=== PATIENT | male | born 1935 | race Caucasian/White ===

== ENCOUNTER 2016-08-09 14:27 | Outpatient (CLI) | payer MEDICARE, OTHER | END 2016-08-09 14:28 | disposition critical access hospital (66) | LOC: EMS 14:27 | PROVIDERS: ATTEND Surgery | DX: R55 Syncope and collapse (principal) | CPT/HCPCS: A0425; A0427 ==

== ENCOUNTER 2016-08-09 14:48 | Observation (INO) | payer MEDICARE, OTHER ==
--- NOTE | 2016-08-09 15:13 | ED Physician Documentation ---
PD HPI CHEST PAIN - Stated complaint Stated Complaint: SYNCOPE - Chief complaint Chief Complaint: Cardiac - History obtained from History obtained from: Patient - History of Present Illness Timing - onset: Other (81-year-old with history of [place] 5 months ago, initially had a EF of 15% he rebounded to 55%. Today he was at a birthday democrat, going down the stairs, had a mechanical slip and fall and braced himself with the right arm and injured his right arm. On water softener servicer and installer arrival they found him to be bradycardic into the 30s and lightheaded, it was reported that he had syncope but he says he remembers everything. He denies any chest pain or trouble breathing.) Review of Systems Ten Systems: 10 systems reviewed and negative Constitutional: denies: Fever, Chills Nose: denies: Rhinorrhea / runny nose, Congestion Cardiac: denies: Chest pain / pressure, Palpitations, Pedal edema, Calf pain Respiratory: denies: Dyspnea, Cough, Wheezing GI: denies: Abdominal Pain PD PAST MEDICAL HISTORY - Past Medical History Cardiovascular: Hypertension Respiratory: None Neuro: None Endocrine/Autoimmune: None HEENT: Other Psych: None Musculoskeletal: None, Osteoarthritis - Past Surgical History Past Surgical History: Yes General: Colonoscopy HEENT: Cataracts - Present Medications Home Medications: Ambulatory Orders Medication Instructions Recorded Confirmed Atorvastatin [Lipitor] 10 mg ORAL QPM 08/09/16 08/09/16 Carvedilol 18.75 mg ORAL BID 08/09/16 08/09/16 Furosemide 40 mg ORAL DAILY 08/09/16 08/09/16 Losartan [Cozaar] 25 mg ORAL QPM 08/09/16 08/09/16 Multivitamin [Multivitamins] 1 tab ORAL DAILY 08/09/16 08/09/16 Spironolactone 25 mg ORAL DAILY 08/09/16 08/09/16 - Allergies Allergies/Adverse Reactions: Allergies Allergy/AdvReac Type Severity Reaction Status Date / Time aspirin Allergy Intermediate Rash Verified 08/09/16 14:58 - Social History Does the pt smoke?: No Smoking Status: Former smoker Does the pt drink ETOH?: Yes Does the pt have substance abuse?: No - Immunizations Immunizations are current?: Yes PD ED PE NORMAL - Vitals Vital signs reviewed: Yes - General General: Alert and oriented X 3, No acute distress - HEENT HEENT: PERRL, EOMI - Neck Neck: Supple, no meningeal sign, No bony TTP - Cardiac Cardiac: RRR, No murmur - Respiratory Respiratory: No respiratory distress, Clear bilaterally - Abdomen Abdomen: Soft, Non tender - Back Back: No CVA TTP, No spinal TTP - Derm Derm: Normal color, Warm and dry - Extremities Extremities: Other (Mildly tender mid right humerus and pain with lifting off the bed, no deformity or neurovascular compromise.) - Neuro Neuro: Alert and oriented X 3, Normal speech - Psych Psych: Normal mood, Normal affect Results - Vitals Vitals: Vital Signs - 24 hr 08/09/16 08/09/16 14:50 15:34 Temperature 36.4 C L Heart Rate 57 L 50 L Respiratory 18 14 Rate Blood Pressure 108/87 H 133/48 H O2 Saturation 100 100 Oxygen O2 Source Room air - EKG (time done) 1451 Rate: Rate (enter#) (58) Rhythm: NSR [place]: Normal Intervals: Normal MD Ischemia: Non specific changes Computer interpretation: Agree with computer - Labs Labs: Laboratory Tests 08/09/16 08/09/16 08/09/16 14:50 14:50 14:50 WBC 3.3 L RBC 3.04 L Hgb 10.1 L Hct 28.7 L MCV 94.6 H MCH 33.4 H MCHC 35.3 RDW 12.7 Plt Count 90 L MPV 10.2 Neut # 1.5 Lymph # 1.2 L Coffee # 0.4 Eos # 0.1 Baso # 0.0 Absolute Nucleated RBC 0.00 Nucleated RBCs 0.0 Sodium 131 L Potassium 5.4 H Chloride 104 Carbon Dioxide 21 Anion Gap 6.0 BUN 34 H Creatinine 1.6 H Estimated GFR (MDRD) 42 L Glucose 130 H Calcium 8.0 L Total Bilirubin 0.4 AST 17 ALT 19 Alkaline Phosphatase 49 Troponin I < 0.04 B-Natriuretic Peptide Total Protein 6.0 L Albumin 3.9 Globulin 2.1 Albumin/Globulin Ratio 1.9 Lipase 59 H 08/09/16 14:50 WBC RBC Hgb Hct MCV MCH MCHC RDW Plt Count MPV Neut # Lymph # Coffee # Eos # Baso # Absolute Nucleated RBC Nucleated RBCs Sodium Potassium Chloride Carbon Dioxide Anion Gap BUN Creatinine Estimated GFR (MDRD) Glucose Calcium Total Bilirubin AST ALT Alkaline Phosphatase Troponin I B-Natriuretic Peptide 72 Total Protein Albumin Globulin Albumin/Globulin Ratio Lipase - Rads (name of study) right humerus Radiology: EMP read contemporaneously (No fracture) PD MEDICAL DECISION MAKING - ED course ED course: 81-year-old gentleman with history of [place] and what sounds like ischemic cardiomyopathy presents after a mechanical fall, potentially followed by syncope mediated by bradycardia versus vagal episode from the injury. Hard to tell at this point. His heart rate here is normal. He does have moderate anemia which seems to be new compared with old labs and mildly but slowly worsening renal insufficiency. Call to Dr. Rosa for observation at 356 p.m. Departure - Departure Disposition: ED Place in Observation Clinical Impression: Ischemic cardiomyopathy, Renal insufficiency, Bradycardia, Pancytopenia Syncope Qualifiers: Syncope type: unspecified Qualified Code(s): R55 - Syncope and collapse Contusion of right arm Qualifiers: Encounter type: initial encounter Qualified Code(s): S40.021A - Contusion of right upper arm, initial encounter Condition: Stable Discharge Date/Time: 08/09/16 16:36
[2016-08-09 15:37] LABS: BASOPHILS % (AUTO) 0.8 %; EOSINOPHILS # (AUTO) 0.1 10^3/uL (0.0-0.7); EOSINOPHILS % (AUTO) 2.2 %; HCT - HEMATOCRIT 28.7 % (42.0-52.0); HGB - HEMOGLOBIN 10.1 g/dL (14.0-18.0); LYMPHOCYTES # (AUTO) 1.2 10^3/uL (1.5-3.5); LYMPHOCYTES % (AUTO) 36.9 %; MEAN CORPUSCULAR HEMOGLOBIN 33.4 pg (27.0-31.0); MEAN CORPUSCULAR HGB CONC 35.3 g/dL (32.0-36.0); MEAN CORPUSCULAR VOLUME 94.6 fL (80.0-94.0); MEAN PLATELET VOLUME 10.2 fL (7.4-11.4); MONOCYTES # (AUTO) 0.4 10^3/uL (0.0-1.0); MONOCYTES % (AUTO) 13.5 %; NEUTROPHILS # (AUTO) 1.5 10^3/uL (1.5-6.6); NEUTROPHILS % (AUTO) 46.6 %; RED BLOOD COUNT 3.04 10^6/uL (4.70-6.10); RED CELL DISTRIBUTION WIDTH 12.7 % (12.0-15.0); UNCORRECTED WHITE BLOOD COUNT 3.3 x10^3/uL; WHITE BLOOD COUNT 3.3 x10^3/uL (4.8-10.8)
--- NOTE | 2016-08-09 15:44 | XRAY Preliminary Report ---
Exam: XR Humerus RT IMPRESSION: No fracture. [facility] SITE ID: [id number]
[2016-08-09 15:46] LABS: ALBUMIN/GLOBULIN RATIO 1.9 (1.0-2.2); BILIRUBIN,TOTAL 0.4 mg/dL (0.2-1.0); CREATININE 1.6 mg/dL (0.6-1.2); POTASSIUM 5.4 mmol/L (3.5-5.0)
--- NOTE | 2016-08-09 15:46 | XRAY Report ---
EXAM: RIGHT HUMERUS RADIOGRAPHY EXAM DATE: 08/09/2016 03:33 PM. CLINICAL HISTORY: Fall with right arm injury. COMPARISON: None. TECHNIQUE: 2 views. FINDINGS: Bones: No fracture or bony destruction. Joints: Alignment and joint space appears satisfactory. Soft Tissues: Normal. No soft tissue swelling. IMPRESSION: No fracture. [facility] Referring Provider Line: [phone] SITE ID: [id number]
[2016-08-09] MEDS ORDERED: SODIUM CHLORIDE FLUSH 0.9% 10 ML SYRINGE IVP PRN (16:08)
[2016-08-09] MEDS: SODIUM CHLORIDE FLUSH 0.9% 10 ML SYRINGE IVP SCH (19:39)
[2016-08-09] MEDS: SODIUM CHLORIDE 0.9% 1,000 ML IV SCH (19:39)
--- NOTE | 2016-08-09 19:48 | Ultrasound Preliminary Report ---
Exam: US Carotid Doppler Complete IMPRESSION: 1. No evidence for hemodynamically significant focal stenosis. 2. Antegrade flow within the vertebral arteries bilaterally. Validated velocity measurements with angiographic measurements and velocity criteria are extrapolated from diameter data as defined by the Society of Radiologists in Ultrasound Consensus Conference Radi ology 2003; 229;340-346. [facility] SITE ID: [id number]
--- NOTE | 2016-08-09 20:17 | Ultrasound Report ---
EXAM: CAROTID DOPPLER ULTRASOUND EXAM DATE: 08/09/2016 07:24 PM. CLINICAL HISTORY: Syncope. COMPARISON: None. TECHNIQUE: Real-time sonographic vascular imaging was performed by the swatch folder through the caroti d arterial system with a linear transducer utilizing color-flow, Doppler flow and spectral analysis. Multiple transportation services representative static images were saved for review. FINDINGS: RIGHT: RCCA Prox: PSV 112 cm/sec. RCCA Dist: PSV 74 cm/sec, EDV 11 cm/sec. RECA: PSV 139 cm/sec. R Bulb: PSV 39 cm/sec, EDV 2 cm/sec, ICA/CCA ratio 0.52. WILLIAM Prox: PSV 44 cm/sec, EDV 7 cm/sec, ICA/CCA ratio 0.59. WILLIAM Mid: PSV 82 cm/sec, EDV 22 cm/sec, ICA/CCA ratio 1.10. WILLIAM Dist: PSV 69 cm/sec, EDV 19 cm/sec, ICA/CCA ratio 0.93. RVA: PSV 47 cm/sec. LEFT: LCCA Prox: PSV 77 cm/sec. LCCA Dist: PSV 99 cm/sec, EDV 14 cm/sec. LECA: PSV 109 cm/sec. L Bulb: PSV 52 cm/sec, EDV 6 cm/sec, ICA/CCA ratio 0.52. LICA Prox: PSV 80 cm/sec, EDV 23 cm/sec, ICA/CCA ratio 0.80. LICA Mid: PSV 62 cm/sec, EDV 13 cm/sec, ICA/CCA ratio 0.62. LICA Dist: PSV 74 cm/sec, EDV 15 cm/sec, ICA/CCA ratio 0.74. LVA: PSV 41 cm/sec. Other: Atherosclerotic calcifications in the bilateral carotid bulbs, left greater than right. IMPRESSION: 1. No evidence for hemodynamically significant focal stenosis. 2. Antegrade flow within the vertebral arteries bilaterally. Validated velocity measurements with angiographic measurements and velocity criteria are extrapolated from diameter data as defined by the Society of Radiologists in Ultrasound Consensus Conference Radi ology 2003; 229;340-346. [facility] Referring Provider Line: [phone] SITE ID: [id number]
--- NOTE | 2016-08-09 22:52 | HISTORY & PHYSICAL EXAMINATION ---
DATE OF ADMISSION: 08/09/2016 PRIMARY CARE PHYSICIAN: Feng Davila MD CHIEF COMPLAINT: Fall. IDENTIFYING INFORMATION: The patient is the primary source of history. His is also with him and presents essential historical information as well. The patient's history is supplemented by the hand-off from Dr. Valdivia, the emergency department physician, as well as personal review of past medical records and the data collected during this visit. All were used in addition to his examination in evaluation of this person and preparation of this document. HISTORY OF PRESENT ILLNESS: The patient is an 81-year-old gentleman, who has history of [place] 5 months ago and CHF, who today was at a birthday democrat at the [employer] for his great granddaughter, and he missed the first step going down and yelled out, and his was ahead of him and had the wherewithal to be holding onto the railing and brace herself so he did not go farther. The patient was noted to be very ashen, and EMS was called, instead of him going to the doctor, with the pain in his right arm, shoulder. When the paramedics arrived, they took vital signs and found him to be bradycardic in the 30s, and he was reporting that he had been lightheaded. He said he did not pass out. The patient denied any chest pain, denies any breathing problems. The patient has been in his usual state of health. REVIEW OF SYSTEMS: Complete review of systems is negative as queried except as noted above. PAST MEDICAL HISTORY: Remarkable for hypertension, coronary artery disease, arthritis, hyperlipidemia, prostate cancer and cataract. PAST SURGICAL HISTORY: He has had prostatectomy, cataract surgery. MEDICATIONS 1. Atorvastatin 10 mg a day. 2. Carvedilol 12.5 b.i.d. 3. Furosemide 40 q.a.m. 4. Losartan 25 mg a day. 6. Multivitamin. 7. Spironolactone 25 mg a day. ALLERGIES: ASPIRIN. PERSONAL AND SOCIAL HISTORY: He is an ex-smoker, he started at age 18, in 1954 and continued until 1986. The patient used to drink 4-6 drinks a night, cut back in 2016 to 3-4. FAMILY HISTORY: Positive for brain aneurysm. His father in an accident in World War 2. The patient has no biological children. PHYSICAL EXAMINATION GENERAL: Elderly male. NEUROLOGICAL: Cogent, consistent. He has pain in his right arm, but is now moving much better than when he came in, and his x-rays were negative. VITAL SIGNS: 36.4, 57, 18, 108/87, and 100. EYES: EOM within normal limits, PERRL, nonicteric. MOUTH AND THROAT: Moist mucous membranes. No other pathology noted. NECK: Supple. Nontender. No lymphadenopathy, no thyromegaly, no bruits, JVD. CHEST WALL: Nontender. Symmetric. HEART: Sinus rhythm, no murmur, rubs, clicks. LUNGS: Clear, good air movement bilaterally. ABDOMEN: Soft, nontender, normal bowel sounds. No hepatosplenomegaly appreciated. RECTAL/GENITAL: Not done. VASCULAR: He has 2+ pulses down to the posterior tibial bilaterally. No cyanosis. Some superficial varicosities of the lower legs noted. SKIN: No suspicious lesions or dermatitis on limited exam. LABORATORY DATA: He has a white count of 3.3, 10 and 28, hemoglobin and hematocrit, platelet count 90. Sodium 131, potassium 5.4, chloride 104, CO2 of 21, BUN 34, creatinine is 1.6, glucose 130, calcium is 8.0, AST is normal, ALT normal. Troponin is less than 0.04. His albumin is 3.9. Lipase slightly elevated at 59. SUMMARY: This is an 81-year-old male who had a myocardial infarction 5 months ago. He had CHF with an EF of 15%, which after cardiac rehabilitation medication rebounded to 55%. The patient today while waiting for a birthday democrat to start went down some stairs at the [facility] in [place] and took a fall, was noted to be very pale, shaky, and had a pulse in the 30s. He was reported lightheaded, but there was no reported blood pressure at that time. The patient is admitted for syncopal episode to be monitored and diagnostics completed as well. IMPRESSION 1. Tachycardia, undetermined etiology. 2. Coronary artery disease. 3. Cardiomyopathy, improved. 4. Hypercholesterolemia. 5. Hypertension. 6. Previous tobacco abuse. 7. Excess alcohol use in the past. DISCUSSION/DECISION MAKING 1. Bradycardia. The patient will be monitored. Because of the near syncopal episode, the patient will have an echocardiogram and carotid ultrasounds. We will get records from [facility], Dr. Quinonez, to see if he has had an echo in the last 6 months. Review of his file that he and his carry around, there is no echocardiogram. 2. Coronary artery disease with no cardiac equivalents on this visit at this point. 3. Cardiomyopathy, improved. The patient will have echocardiogram done, as noted above, if it has not been done in the last 6 months. 4. Hyperlipidemia. Will have a lipid panel in the a.m. to assess his present therapy. 5. Hypertension. The patient will be watched for his blood pressure and medications assumed as needed. The patient is on 2 potassium-sparing agents, and one will be stopped, and his potassium monitored. 6. The patient's previous tobacco abuse will not have any further interventions at this juncture, and the same with the previous excess use of alcohol. HOSPITAL ISSUES 1. Code status: He is FULL CODE. 2. Venous thromboembolism: He will get Lovenox. 3. Diet: Will be a cardiac diet. 4. Activity: Will be assisted until sure that he is safe to rise and walk by himself. 5. Tubes and line: Will be just a peripheral IV at this point. 6. The patient's hospital status: He will be placed on observation, with the expectation that he will not stay longer than 24 hours and definitely not 96 hours. 7. Estimated length of stay: Less than 2 midnights. 8. Disposition: He is expected to be back home with his . JOB #: [id number] EXT JOB #:[id number] SURENDRA
[2016-08-10 05:28] LABS: BILIRUBIN,TOTAL 0.6 mg/dL (0.2-1.0); CALCIUM 8.4 mg/dL (8.5-10.3); CREATININE 1.2 mg/dL (0.6-1.2); POTASSIUM 4.9 mmol/L (3.5-5.0); TOTAL PROTEIN 5.7 g/dL (6.7-8.2)
[2016-08-10 05:30] LABS: BASOPHILS % (AUTO) 0.5 %; EOSINOPHILS # (AUTO) 0.1 10^3/uL (0.0-0.7); EOSINOPHILS % (AUTO) 1.9 %; HCT - HEMATOCRIT 29.9 % (42.0-52.0); HGB - HEMOGLOBIN 10.2 g/dL (14.0-18.0); LYMPHOCYTES # (AUTO) 1.2 10^3/uL (1.5-3.5); LYMPHOCYTES % (AUTO) 26.1 %; MEAN CORPUSCULAR HEMOGLOBIN 32.3 pg (27.0-31.0); MEAN CORPUSCULAR HGB CONC 34.1 g/dL (32.0-36.0); MEAN CORPUSCULAR VOLUME 94.9 fL (80.0-94.0); MEAN PLATELET VOLUME 9.8 fL (7.4-11.4); MONOCYTES # (AUTO) 0.5 10^3/uL (0.0-1.0); MONOCYTES % (AUTO) 9.9 %; NEUTROPHILS # (AUTO) 2.9 10^3/uL (1.5-6.6); NEUTROPHILS % (AUTO) 61.6 %; RED BLOOD COUNT 3.15 10^6/uL (4.70-6.10); RED CELL DISTRIBUTION WIDTH 12.3 % (12.0-15.0); UNCORRECTED WHITE BLOOD COUNT 4.7 x10^3/uL; WHITE BLOOD COUNT 4.7 x10^3/uL (4.8-10.8)
[2016-08-10 05:32] LABS: CHOL/HDL RATIO 4.1 (<5.0); CHOLESTEROL 146 mg/dL; HDL CHOLESTEROL 36 mg/dL; LDL/HDL RATIO 2.4 (<3.6); TRIGLYCERIDES 126 mg/dL; VLDL CHOLESTEROL 25 mg/dL
[2016-08-10] MEDS: SODIUM CHLORIDE FLUSH 0.9% 10 ML SYRINGE IVP SCH (06:53)
[2016-08-10 08:13] VITALS: BP 117/56
[2016-08-10] MEDS: SODIUM CHLORIDE 0.9% 1,000 ML IV SCH (08:59)
[2016-08-10] MEDS ORDERED: POLYETHYLENE GLYCOL 3350 17 GM PACKET PO SCH (09:00)
[2016-08-10] MEDS ORDERED: ENOXAPARIN 40 MG/0.4 ML SYRINGE SUBQ SCH (09:00)
--- NOTE | 2016-08-10 10:46 | Discharge Plan ---
Discharge Plan Disposition: Home, Self Care Condition: Good Diet: Cardiac Activity Restrictions: Activity as Tolerated Shower Restrictions: No Driving Restrictions: Yes (no driving ) Weight Bearing: Full Weight Additional Instructions or Follow Up instructions: Continue your walking/exercise program. Continue your usual meds, EXCEPT: reduce your Coreg (carvidolol) to one pill twice a day. Make appt to see Dr. Davila in 1-2 weeks and your Anthropology And Archeology Instructor Dr. Quinonez in 2- 4 weeks Enjoy each day and thank you Dr. Rosa No Smoking: If you smoke, Please STOP! Call for help. Follow-up with: Feng Davila MD [Physician No Access] - 1 Week Brad Quinonez MD [Physician No Access] - 4 Weeks
[2016-08-10] MEDS ORDERED: MULTIVITAMIN TABLET PO SCH (11:00)
[2016-08-10] MEDS ORDERED: FUROSEMIDE 40 MG TABLET PO SCH (11:00)
--- NOTE | 2016-08-10 15:24 | DISCHARGE SUMMARY ---
DATE OF ADMISSION: 08/09/2016 DATE OF DISCHARGE: 08/10/2016 PRIMARY CARE PHYSICIAN: Feng Davila MD ADMISSION DIAGNOSES 1. Bradycardia, undetermined etiology. 2. Coronary artery disease. 3. Cardiomyopathy, improved. 4. Hypercholesterolemia. 5. Hypertension. 6. Previous tobacco abuse. 7. Excess alcohol use in the past. DISCHARGE DIAGNOSES 1. Bradycardia, probable etiology secondary to vasovagal episode. 2. Coronary artery disease, quiescent. 3. Cardiomyopathy, improved. 4. Hypercholesterolemia. 5. Hypertension. 6. Previous tobacco abuse. 7. Excess alcohol use in the past. SPECIAL PROCEDURES: The patient had a carotid Doppler study, which showed no significant focal stenosis and antegrade flow within the vertebral arteries bilaterally. The patient also had an echocardiogram with preliminary findings: The patient's EF is 60% to 65%, compared to prior echo. Right ventricle normal in size and function. Severe increase in left atrium volume index. Right atrium with moderate right atrial index enlargement. Aortic valve shows mild to moderate aortic regurgitation and 0.29 cm diameter, and regurgitant volume is 75.9 mL. The mitral valve shows no stenosis and mild regurgitation. Tricuspid valve has mild tricuspid regurgitation. RVSP is only 35. HOSPITAL COURSE AND MANAGEMENT: The initial presentation, emergency department evaluation, and hospitalist plan are well described in the history and physical , see copy of same. SUMMARY: This is an 81-year-old male with a myocardial infection 11 months ago. He has CHF with an EF of 15%, which after cardiac rehab and medication rebounded to 55%. The patient today, while waiting for a birthday democrat to start , went down some stairs at the [facility] in [place] and took a fall. He was noted to be very pale, shaky, and had pulses in the 30s. He was noted to be lightheaded, but there was no reported blood pressure at the time. The patient was admitted for observation to be monitored and certain diagnostics completed as well. The patient was monitored overnight, had only bradycardia in the high 40s. The patient had an echocardiogram, for which the results are listed above and certainly benign and improved from previous echocardiogram. The patient's carotid was likewise normal. The patient was discharged home. ALLERGIES: ASPIRIN. MEDICATIONS 1. Multivitamin once a day. 2. Carvedilol 12.5 mg twice a day. 3. Atorvastatin 10 mg a day. 4. Furosemide 40 mg a day. 5. Losartan 25 mg a day. 6. He is going to hold for the present his spironolactone because of hypokalemia to 5.4 when he came in. The patient is to follow up with Ramonita Otero and his funeral counselor, Dr. Quinonez in 1 week and 2 weeks respectively. The outpatient issues are his cardiac status, the etiology of the bradycardia and near syncopal episode, the hyperkalemia, and the patient being normotensive. The patient's recommendation for home is to reduce his carvedilol to 12.5 mg twice a day. The patient will remain on the same doses of losartan, furosemide and atorvastatin. LABORATORY DATA ON DISCHARGE: White count 4.7, 10.2 and 30 hemoglobin and hematocrit, the patient's platelets are 104. The patient's sodium is 134, potassium is 4.9 down from 5.4, chloride 105, CO2 is 22, BUN is 32, creatinine is 1.2, glucose 91 and 8.4 calcium. Total bilirubin is 0.6, AST is 19, ALT is likewise the same, and alkaline phosphatase 41. His albumin is 3.8. He has had triglycerides 126, cholesterol 146, LDL is 85, HDL is 36. The patient is discharged home. Time spent in discharge activity is less than 30 minutes. JOB #: [id number] EXT JOB #:[id number] SURENDRA
[2016-08-10] MEDS ORDERED: LOSARTAN 50 MG TABLET PO SCH (21:00)
== END 2016-08-10 11:39 | disposition home or self-care (01) ==
LOC: EDUNIT# → ED 14:48 → MS 16:09
PROVIDERS: ADMIT Internal Medicine; ATTEND Internal Medicine
DX: R55 Syncope and collapse (principal); R00.1 Bradycardia, unspecified; I25.10 Atherosclerotic heart disease of native coronary artery without angina pectoris; I25.5 Ischemic cardiomyopathy; E78.5 Hyperlipidemia, unspecified; I11.0 Hypertensive heart disease with heart failure; S40.021A Contusion of right upper arm, initial encounter; W10.9XXA Fall (on) (from) unspecified stairs and steps, initial encounter; Y92.331 Roller skating rink as the place of occurrence of the external cause; Z87.891 Personal history of nicotine dependence; I50.9 Heart failure, unspecified; E87.5 Hyperkalemia; N28.9 Disorder of kidney and ureter, unspecified; D61.818 Other pancytopenia; I25.2 Old myocardial infarction; Z85.46 Personal history of malignant neoplasm of prostate
CPT/HCPCS: 36415; 73060; 80053; 80061; 83690; 83880; 84484; 85025; 93005; 93010; 93306; 93880; 96360; 96372; 99284; 99285; G0378; J1650

== ENCOUNTER 2023-12-04 07:36 | Outpatient (CLI) | payer MEDICARE, OTHER | END 2023-12-04 23:59 | disposition E | LOC: EMS 07:36 ==